=== PATIENT | male | born 1950 | race Caucasian/White ===

== ENCOUNTER → 2016-05-08 | Outpatient (CLI) | payer MEDICARE | END | disposition home or self-care (01) | LOC: PCVCIMAG 13:06 | PROVIDERS: ATTEND Nuclear Medicine Nuclear Cardiology | DX: I70.262 Atherosclerosis of native arteries of extremities with gangrene, left leg (principal); I72.4 Aneurysm of artery of lower extremity | CPT/HCPCS: 93926 ==

== ENCOUNTER → 2016-05-18 | Outpatient (CLI) | payer MEDICARE | END | disposition home or self-care (01) | LOC: PCVCCLINIC 13:43 | PROVIDERS: ATTEND Nuclear Medicine Nuclear Cardiology | DX: I73.9 Peripheral vascular disease, unspecified (principal) | CPT/HCPCS: 36415 ==

== ENCOUNTER → 2016-05-22 | Outpatient (CLI) | payer MEDICARE ==
[~2016-05-22] MED LIST: ASPIRIN 325 MG TABLET ONE; CEFAZOLIN 2GM PREMIX 0 ML IV ONE; CLOPIDOGREL BISULFATE 75 MG TABLET ONE; DIAZEPAM 10 MG TABLET ONE; FENTANYL PF 100 MCG/2 ML VIAL. ONE; HEPARIN 5,000 UNIT/ML VIAL for PCVC ONE; IODIXANOL 270 MG/ML 100 ML VIAL. ONE; IV NORMAL SALINE 1000ML BAG 1,000 ML ONE; IV NORMAL SALINE 500ML BAG 0 ML ONE; LIDOCAINE 1% Multi-Dose 20 ML VIAL. ONE; MIDAZOLAM HCL 2 MG/2 ML VIAL. ONE; hydrALAZINE 20 MG/ML VIAL. ONE
== END | disposition home or self-care (01) ==
LOC: PCVCINTER 07:30
PROVIDERS: ATTEND Nuclear Medicine Nuclear Cardiology
DX: I77.89 Other specified disorders of arteries and arterioles (principal); I72.4 Aneurysm of artery of lower extremity; I70.1 Atherosclerosis of renal artery; I15.0 Renovascular hypertension; L97.829 Non-pressure chronic ulcer of other part of left lower leg with unspecified severity; L97.819 Non-pressure chronic ulcer of other part of right lower leg with unspecified severity; I70.92 Chronic total occlusion of artery of the extremities; E11.9 Type 2 diabetes mellitus without complications
CPT/HCPCS: 36252; 75716; 76937; C1751; C1760; C1769; C1894; J0360; J2250; J3010; J7030; J0690; J1644; J7040

== ENCOUNTER 2016-05-24 09:00 | Outpatient (CLI) | payer MEDICARE ==
[~2016-05-24 09:00] MED LIST changes: -CEFAZOLIN 2GM PREMIX 0 ML IV ONE; +CEFAZOLIN 2GM PREMIX 50 ML IV ONE; -CLOPIDOGREL BISULFATE 75 MG TABLET ONE; -IV NORMAL SALINE 500ML BAG 0 ML ONE
[2016-05-24] MEDS ORDERED: EPTIFIBATIDE BOLUS 2,000 MCG/ML 10ML VIAL. IV ONE (10:10)
== END 2016-05-24 13:00 | disposition home or self-care (01) ==
LOC: PCVCINTER 09:00
PROVIDERS: ATTEND Nuclear Medicine Nuclear Cardiology
DX: I72.4 Aneurysm of artery of lower extremity (principal); I73.9 Peripheral vascular disease, unspecified
CPT/HCPCS: 37226; 76937; C1725; C1751; C1757; C1760; C1769; C1885; C1894; J0360; J0690; J1327; J1644; J2250; J3010; J7030